=== PATIENT | male | born 1940 | race Caucasian/White ===

== ENCOUNTER 2016-12-15 10:48 | Emergency (ER) | payer OTHER ==
--- NOTE | 2016-12-15 11:14 | CPEKG ---
Heart Rate: 66 RR Interval: 909 P-R Interval: 172 QRSD Interval: 88 QT Interval: 412 QTC Interval: 432 P [place]: 63 QRS [place]: -47 T Wave [place]: 29 EKG Severity - ABNORMAL ECG - EKG Impression: SINUS RHYTHM EKG Impression: LEFT ANTERIOR FASCICULAR BLOCK Electronically Signed By: Betty Levi 15-Dec-2016 15:47:49
[2016-12-15 11:57] LABS: % IMMATURE GRANULYOCYTES 0.2 % (0.0-1.1); ABSOLUTE IMMATURE GRANULOCYTES 0.01 10^3/uL (0.00-0.10); ADD DIFF? NO; ADD MORPH? NO; ADD SCAN? NO; ATYPICAL LYMPHOCYTE FLAG 10 (0-99); FRAGMENT RBC FLAG 0 (0-99); HEMATOCRIT 45.4 % (40.0-51.0); HEMOGLOBIN 14.8 g/dL (13.7-17.5); LEFT SHIFT FLG 0 (0-99); LIPEMIA HEMOLYSIS FLAG 80 (0-99); MEAN CELL HEMOGLOBIN 30.5 pg (27.9-34.1); MEAN CELL HEMOGLOBIN CONCENTR. 32.6 g/dL (32.4-36.7); MEAN CELL VOLUME 93.4 fL (81.5-99.8); MEAN PLATELET VOLUME 10.3 fL (8.7-11.7); PLATELET CLUMPS FLAG 0 (0-99); PLATELET COUNT 163 10^3/uL (150-400); RED BLOOD CELL COUNT 4.86 10^6/uL (4.40-6.38); RED CELL DISTRIBUTION WIDTH 14.3 % (11.5-15.2)
--- NOTE | 2016-12-15 11:58 | EDPHY ---
HPI/HX/ROS/PE/MDM Narrative: CHIEF COMPLAINT: Left shoulder and arm pain HISTORY OF PRESENT ILLNESS: This patient is a 76 year old male arriving with his complaining of pain in his left shoulder and numbness in his left index finger onset around 8:30 this morning. He woke up and noted a sharp pain in his left shoulder. This pain has been constant since that time. He has history of rotator cuff problems in the past, and thought the pain might be related to this but it has not resolved at all since onset despite taking two Tylenol. His discomfort is increased with deep inspiration, which patient thinks is due to the movement of the shoulder. He has no anterior chest paint. He notes numbness in his left small finger, and feels some ulnar aspect numbness as well. Prior to last night, he felt well. He denies recent illness or trauma. No neck pain or history of c-spine pain or radiculopathy. No fever, chills, chest pain, abdominal pain, shortness of breath, palpitations, vomiting, diarrhea, urinary complaints, headache, lightheadedness. REVIEW OF SYSTEMS: Aside from elements discussed in the HPI, a comprehensive 10-point review of systems was reviewed and is negative. PAST MEDICAL HISTORY: Diabetes mellitus Type II recent onset. History of shingles. Cardiac murmur. Lasix for edema. SOCIAL HISTORY: . at bedside. Professor at [employer]. VITAL SIGNS: Reviewed by me GENERAL: Well-developed, well-nourished, resting comfortably in no respiratory distress. HEENT: Atraumatic. Eyes: No icterus, no injection. Mouth: moist mucous membranes. No erythema or lesions. Neck: supple with no adenopathy. LUNGS: Clear to auscultation bilaterally, no wheezes, rhonchi or rales. CARDIAC: Regular rate and rhythm, no rubs, murmurs or gallops. No chest wall tenderness. No rash. ABDOMEN: Soft, nontender, nondistended, bowel sounds normal. BACK: No CVA tenderness. EXTREMITIES: Well-circumscribed area of tenderness over left anterior humeral head. No abrasions or contusions. Pain with movement of the shoulder. No warmth. Sensation in hand normal. Brisk cap refill. Trace lower extremity edema. NEURO: Alert and oriented, grossly nonfocal. SKIN: Warm and dry, no rash. PSYCHIATRIC: Normal mentation, no agitation. ED Course: 76 year old male presents with left shoulder pain and left small finger numbness. He has a well-defined area of shoulder tenderness on anterior shoulder. Plan for EKG, labs including CBC, BMP, Troponin. Plan for chest x-ray , shoulder x-ray. IV established. Administered 15mg IV Toradol for pain control. 12:50 Shoulder x-ray negative for acute processes, evidence of osteoarthritis. Chest x-ray shows cardiomegaly, peribronchial thickening. Labs within normal limits, including BNP. Plan to discharge home in good condition. He will follow up with orthopedics and his primary care physician. Return precautions discussed. The patient is comfortable with this plan. Patient with shoulder and hand discomfort present for greater than 4 hours. EKG nonischemic and troponin negative. BNP normal. Pain exacerbated by movment of shoulder. Patient does have cardiac risk factors, but presentation is low risk at this time. Feel patient can be safely discharged to follow up without fail with PCP and ortho. My concerns discussed with patient and and they are in agreement. Encouraged close follow up and return if any concerns. MDM: Diff dx considered included angina, shoulder injury, cervical radiculopathy, rotator cuff tear, neuropathy, ACS. 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 Dictated By: Benjy Au MD CXR: Impression: Mild cardiomegaly and peribronchial thickening, but no focal infiltrate or evidence of cardiogenic interstitial edema. Dictated By: Benjy Au MD Imaging: I viewed and interpreted images myself Laboratory Results: Laboratory Results 12/15/16 Unknown 12/15/16 Unknown Medications Given: Discontinued Medications Ketorolac Tromethamine (Toradol) 15 mg IVP EDNOW ONE Stop: 12/15/16 12:32 Last Admin: 12/15/16 12:33 Dose: 15 mg General Time Seen by Provider: 12/15/16 11:48 Initial Vital Signs: Initial Vital Signs Temperature (C) 36.6 C 12/15/16 10:52 Heart Rate 66 12/15/16 10:52 Respiratory Rate 16 12/15/16 10:52 Blood Pressure 136/83 H 12/15/16 10:52 O2 Sat (%) 96 12/15/16 10:52 O2 Delivery Mode Room Air Allergies/Adverse Reactions: erythromycin base [Erythromycin Base] Allergy (Intermediate, Verified 12/15/16 10:59) NAUSEA VALCYCLOVIR Allergy (Unknown, Uncoded 12/15/16 10:59) Home Medications: Medication Instructions Recorded Empagliflozin [Jardiance] 10 mg PO 12/15/16 metFORMIN HCL [Glucophage 500 mg 500 mg PO 12/15/16 (*)] Departure - Departure Disposition: Home, Routine, Self-Care Clinical Impression: Shoulder pain, left Qualifiers: Chronicity: acute Qualified Code(s): M25.512 - Pain in left shoulder Condition: Good Instructions: Shoulder Pain (ED) Additional Instructions: Follow up with an naval architect specialist for continued evaluation of your shoulder pain. Please call the primary care physician and follow up with him without fail on either Monday or Monday. Be sure they know you were in the emergency department and that this is an emergency department follow-up. If your symptoms are not improving as expected, please return to the emergency department. Especially if you develop worsening pain, chest pain, shortness of breath, pain in the back, abdominal pain, weakness or numbness in the hand, arm , leg, or word-finding difficulties. Apply ice to the shoulder for 20-30 minutes every 2-3 hours for the next 48 hours. I recommend Ibuprofen (Motrin, Advil) or Naproxen Sodium (Aleve) for pain and anti-inflammatory effects. You may take either one, but do not take both. Your dose is: Ibuprofen 600 mg every 6-8 hours with food. OR Naproxen Sodium (Aleve) 220 mg every 12 hours. Referrals: SARAH HEIN [Primary Care Provider] - As per Instructions Nu Gillette MD [Medical Doctor] - As per Instructions Report Scribed for: Betty Levi Report Scribed by: Veda Garcia Date of Report: 12/15/16 Time of Report: 11:58 Physician Review and Approval Statement: Portions of this note were transcribed by a medical billing and coding specialist. I personally performed a history, physical exam, medical decision making, and confirmed accuracy of information the transcribed note.
[2016-12-15 12:14] LABS: ANION GAP 15 mEq/L (8-16); CALCIUM 9.3 mg/dL (8.5-10.4); CARBON DIOXIDE 21 mEq/l (22-31); CHLORIDE 103 mEq/L (97-110); CREATININE 0.7 mg/dL (0.7-1.3); GLOMERULAR FILTRATION RATE > 60; GLUCOSE 120 mg/dL (70-100); POTASSIUM 3.9 mEq/L (3.5-5.2); SODIUM 139 mEq/L (134-144)
[2016-12-15 12:18] VITALS: RESP 18; TEMP 98.2
[2016-12-15 12:24] LABS: TROPONIN I < 0.012 ng/mL (0.000-0.034)
[2016-12-15] MEDS ORDERED: KETOROLAC 15 MG/1 ML SDV IVP ONE (12:31)
[2016-12-15 13:53] VITALS: BP 133/67; PULSE 78; O2SAT 93
== END 2016-12-15 13:56 | disposition home or self-care (01) ==
DX: M25.512 Pain in left shoulder (principal); E11.9 Type 2 diabetes mellitus without complications; Z79.84 Long term (current) use of oral hypoglycemic drugs
CPT/HCPCS: 96374; J1885